=== PATIENT | female | born 1955 | race African-American/Black ===

== ENCOUNTER → 2017-01-25 | Outpatient (CLI) | payer OTHER | LOC: OD 10:42 | PROVIDERS: ATTEND Physician Assistant | DX: R05 Cough (principal) | CPT/HCPCS: 71020 ==

== ENCOUNTER → 2017-03-10 | Outpatient (CLI) | payer OTHER | LOC: RAD 09:19 | PROVIDERS: ATTEND Urology | DX: D30.02 Benign neoplasm of left kidney (principal) | CPT/HCPCS: 76770 ==

== ENCOUNTER → 2017-07-21 | Outpatient (CLI) | payer OTHER ==
--- NOTE | 2017-07-21 15:26 | WOMENS IMAGING REPORT ---
EXAM DESCRIPTION: BILAT SCREENING MAMMO W/CAD COMPLETED DATE/TIME: 07/21/2017 2:20 pm REASON FOR STUDY: ROUTINE SCREENING; Z12.31 Z12.31 ENCNTR SCREEN MAMMOGRAM FOR MALIGNANT NEOPLASM O F SARAI COMPARISON: Annual priors dating back to February 2010. TECHNIQUE: Standard craniocaudal and mediolateral oblique views of each breast recorded using digita l acquisition. LIMITATIONS: None. FINDINGS: No masses, calcifications or architectural distortion. No areas of suspicion. Read with the assistance of CAD. .[facility] - R2 Cenova Version 1.3 .[facility] Imaging - R2 Cenova Version 1.3 .[facility] - R2 Cenova Version 2.4 .[facility] [place] R2 Cenova Version 2.4 .[facility] - R2 Language Tutor Version 9.2 IMPRESSION: NORMAL MAMMOGRAM. BIRADS 1. BREAST DENSITY: a. The breasts are almost entirely fatty. BIRAD: 1 NEGATIVE RECOMMENDATION: ROUTINE SCREENING COMMENT: The patient has been notified of the results by letter per SA requirements. Additional no tification policies are in place for contacting patient with suspicious or incomplete findings. Quality ID #[id number]: The [employer] recommends an annual screening mammogram for women aged 40 years or over. This facility utilizes a reminder system to ensure that all patients receive reminder letters, and/or direct phone calls for appointments. This includes reminders for routine scr eening mammograms, diagnostic mammograms, or other Breast Imaging Interventions when appropriate. Th is patient will be placed in the appropriate reminder system. The [employer] ([employer]) has developed recommendations for screening MRI of the breast s in certain patient populations, to be used in conjunction with mammography. Breast MRI surveillanc e may be appropriate for women with more than 20% lifetime risk of developing breast cancer as deter mined by genetic testing, significant family history of the disease, or history of mantle radiation f or Hodgkins Disease. ACR Practice Guidelines 2008. TECHNICAL DOCUMENTATION: FINDING NUMBER: (1) ASSESSMENT: (1) JOB ID: [id number] [employer]- All Rights Reserved
== END ==
LOC: WI 13:58
PROVIDERS: ATTEND Physician Assistant
DX: Z12.31 Encounter for screening mammogram for malignant neoplasm of breast (principal)
CPT/HCPCS: 77067; G0202

== ENCOUNTER 2018-03-26 15:23 | Inpatient (IN) | payer OTHER ==
[2018-03-26] MEDS ORDERED: ASPIRIN 81 MG TABLET, CHEWABLE PO ONE (16:51)
--- NOTE | 2018-03-26 16:53 | ER Document Report ---
ED Medical Screen (RME) - General Chief Complaint: Chest Pain Stated Complaint: SHORTNESS OF BREATH Time Seen by Provider: 03/26/18 16:48 Notes: Patient has had chest pain since while at work. Since then the pain comes and goes, located under her left breast. She has had some acid reflux mixed in with this pain. Been nauseated but not vomiting. Some shortness of breath. Went to a local urgent care who sent her here for further evaluation. Patient has a history of DVTs. No history of heart disease. Insulin-dependent diabetic. Hypertension. Cholesterol. Patient is an ex-smoker, stopped 5 years ago. Patient is on Plavix and aspirin. TRAVEL OUTSIDE OF THE [place] IN LAST 30 DAYS: No - Related Data Allergies/Adverse Reactions: diphenhydramine HCl [From Benadryl] Allergy (Unknown, Verified 11/12/12 23:31) Facial swelling Lactase [From Dairy Ease] Adverse Reaction (Intermediate, Verified 11/09/12 19: 35) VOMITING latex Allergy (Mild, Uncoded 11/09/12 21:32) Generalized Itching Past Medical History - Past Medical History Cardiac Medical History: Reports: Hx Hypercholesterolemia, Hx Hypertension Denies: Hx Atrial Fibrillation, Hx Congestive Heart Failure, Hx Coronary Artery Disease, Hx Heart Attack, Hx Peripheral Vascular Disease, Hx Pulmonary Embolism, Hx Heart Murmur Pulmonary Medical History: Reports: Hx Asthma, Hx Bronchitis Denies: Hx COPD, Hx Pneumonia, Hx Respiratory Failure, Hx Sleep Apnea, Hx Tuberculosis Endocrine Medical History: Reports: Hx Diabetes Mellitus Type 1. Denies: Hx Graves' Disease, Hx Hyperthyroidism, Hx Hypothyroidism Renal/ Medical History: Denies: Hx Peritoneal Dialysis Malignancy Medical History: Denies: Hx Leukemia, Hx Lung Cancer GI Medical History: Reports: Hx Gastroesophageal Reflux Disease. Denies: Hx Crohn's Disease, Hx Hiatal Hernia, Hx Irritable Bowel, Hx Liver Failure, Hx Pancreatitis, Hx Ulcer Musculoskeltal Medical History: Reports Hx Arthritis, Denies Hx Fibromyalgia, Denies Hx Muscular Dystrophy, Reports Hx Muscle Spasm Traumatic Medical History: Denies: Hx Fractures Infectious Medical History: Denies: Hx HIV Past Surgical History: Reports: Hx Section - 1988, Hx Cholecystectomy, Hx Hysterectomy, Hx Tubal Ligation. Denies: Hx Appendectomy, Hx Bowel Surgery, Hx Colostomy, Hx Coronary Artery Bypass Graft, Hx Gastric Bypass Surgery, Hx Herniorrhaphy, Hx Mastectomy, Hx Pacemaker, Hx Tonsillectomy - Immunizations Hx Diphtheria, Pertussis, Tetanus Vaccination: Yes Physical Exam - Vital signs Vitals: Temp Pulse Resp BP Pulse Ox 97.8 F 86 16 151/93 H 97 03/26/18 16:04 03/26/18 16:04 03/26/18 16:04 03/26/18 16:04 03/26/18 16:04 Course - Vital Signs Vital signs: Temp Pulse Resp BP Pulse Ox 97.8 F 86 16 151/93 H 97 03/26/18 16:04 03/26/18 16:04 03/26/18 16:04 03/26/18 16:04 03/26/18 16:04
[2018-03-26 17:25] LABS: ABSOLUTE BASOPHILS # (AUTO) 0.1 10^3/uL (0.0-0.2); ABSOLUTE EOSINOPHILS # (AUTO) 0.1 10^3/uL (0.0-0.6); ABSOLUTE LYMPHOCYTES (AUTO) 1.9 10^3/uL (0.5-4.7); ABSOLUTE MONOCYTES (AUTO) 0.4 10^3/uL (0.1-1.4); BASOPHILS % (AUTO) 1.3 % (0-2); HEMATOCRIT 38.6 % (36.0-47.0); HEMOGLOBIN 12.7 g/dL (12.0-15.5); LYMPHOCYTES % (AUTO) 25.5 % (13-45); MEAN CORPUSCULAR HEMOGLOBIN 29.1 pg (27.0-33.4); MEAN CORPUSCULAR HGB CONC 32.8 g/dL (32.0-36.0); MEAN CORPUSCULAR VOLUME 89 fl (80-97); MONOCYTES % (AUTO) 4.8 % (3-13); PLATELET COUNT 335 10^3/uL (150-450); RED BLOOD COUNT 4.35 10^6/uL (3.72-5.28); RED CELL DISTRIBUTION WIDTH 14.2 % (11.5-14.0); SEGMENTED NEUTROPHILS % (AUTO) 66.4 % (42-78); TOTAL CELLS COUNTED % (AUTO) 100 %; WHITE BLOOD COUNT 7.5 10^3/uL (4.0-10.5)
--- NOTE | 2018-03-26 17:41 | EKG REPORT ---
SEVERITY:- BORDERLINE ECG - SINUS RHYTHM PROBABLE LEFT ATRIAL ABNORMALITY BORDERLINE T WAVE ABNORMALITIES : Confirmed by: Simone Monroy MD 26-Mar-2018 17:39:53
--- NOTE | 2018-03-26 17:51 | RADIOLOGY REPORT (SQ) ---
EXAM DESCRIPTION: CHEST SINGLE VIEW COMPLETED DATE/TIME: 03/26/2018 5:40 pm REASON FOR STUDY: Chest pain under left breast for 4 days COMPARISON: 01/25/2017 EXAM PARAMETERS: NUMBER OF VIEWS: One view. TECHNIQUE: Single frontal radiographic view of the chest acquired. RADIATION DOSE: NA LIMITATIONS: None. FINDINGS: LUNGS AND PLEURA: No opacities, masses or pneumothorax. No pleural effusion. MEDIASTINUM AND HILAR STRUCTURES: No masses. Contour normal. HEART AND VASCULAR STRUCTURES: Stable heart size. BONES: No acute findings. HARDWARE: None in the chest. OTHER: No other significant finding. IMPRESSION: NO ACUTE RADIOGRAPHIC FINDING IN THE CHEST. TECHNICAL DOCUMENTATION: JOB ID: [id number] [employer]- All Rights Reserved Reading location - IP/workstation name: [email or web address]
--- NOTE | 2018-03-26 17:53 | ER Document Report ---
ED Cardiac - General Chief Complaint: Chest Pain Stated Complaint: SHORTNESS OF BREATH Time Seen by Provider: 03/26/18 16:48 Information source: Patient Notes: Patient is a 62-year-old female with past medical history of diabetes, high blood pressure, and high cholesterol who presents today with the onset 2 days ago of some intermittent left nonradiating chest "pressure". She denies to me any shortness of breath. She denies exertional symptoms. She denies nausea, vomiting, or fevers. She states that there are no aggravating or relieving factors and it is not exertional. She states that the onset of the symptomatology 2 days ago she had some mild epigastric discomfort. She states she has not had this discomfort since that time. Patient states that the episodes are transient. She denies any calf pain, leg swelling, or recent trips or travel. TRAVEL OUTSIDE OF THE [place] IN LAST 30 DAYS: No - HPI Patient complains to provider of: Chest pain Was the onset of pain: Gradual Chest pain location: Under breast Quality of pain: Other - See above Chest pain radiation location: None Severity now: Mild Severity at worst: Mild Pain level currently: Denies Cardiac risk factors: Diabetes, Hypertension, Dyslipidemia Positive cardiac history: No Associated symptoms: Other - See above Exacerbated by: Denies Relieved by: Nothing Similar symptoms previously: No Recently seen / treated by doctor: No - Related Data Allergies/Adverse Reactions: diphenhydramine HCl [From Benadryl] Allergy (Unknown, Verified 11/12/12 23:31) Facial swelling Lactase [From Dairy Ease] Adverse Reaction (Intermediate, Verified 11/09/12 19: 35) VOMITING latex Allergy (Mild, Uncoded 11/09/12 21:32) Generalized Itching Past Medical History - General Information source: Patient - Social History Smoking Status: Former Smoker Cigarette use (# per day): No Chew tobacco use (# tins/day): No Smoking Education Provided: No Frequency of alcohol use: None Family History: Reviewed & Not Pertinent Patient has suicidal ideation: No Patient has homicidal ideation: No - Past Medical History Cardiac Medical History: Reports: Hx Hypercholesterolemia, Hx Hypertension Denies: Hx Atrial Fibrillation, Hx Congestive Heart Failure, Hx Coronary Artery Disease, Hx Heart Attack, Hx Peripheral Vascular Disease, Hx Pulmonary Embolism, Hx Heart Murmur Pulmonary Medical History: Reports: Hx Asthma, Hx Bronchitis Denies: Hx COPD, Hx Pneumonia, Hx Respiratory Failure, Hx Sleep Apnea, Hx Tuberculosis Endocrine Medical History: Reports: Hx Diabetes Mellitus Type 1. Denies: Hx Graves' Disease, Hx Hyperthyroidism, Hx Hypothyroidism Renal/ Medical History: Denies: Hx Peritoneal Dialysis Malignancy Medical History: Denies: Hx Leukemia, Hx Lung Cancer GI Medical History: Reports: Hx Gastroesophageal Reflux Disease. Denies: Hx Crohn's Disease, Hx Hiatal Hernia, Hx Irritable Bowel, Hx Liver Failure, Hx Pancreatitis, Hx Ulcer Musculoskeltal Medical History: Reports Hx Arthritis, Denies Hx Fibromyalgia, Denies Hx Muscular Dystrophy, Reports Hx Muscle Spasm Traumatic Medical History: Denies: Hx Fractures Infectious Medical History: Denies: Hx HIV Past Surgical History: Reports: Hx Section - 1988, Hx Cholecystectomy, Hx Hysterectomy, Hx Tubal Ligation. Denies: Hx Appendectomy, Hx Bowel Surgery, Hx Colostomy, Hx Coronary Artery Bypass Graft, Hx Gastric Bypass Surgery, Hx Herniorrhaphy, Hx Mastectomy, Hx Pacemaker, Hx Tonsillectomy - Immunizations Hx Diphtheria, Pertussis, Tetanus Vaccination: Yes Review of Systems - Review of Systems Constitutional: denies: Fever EENT: denies: Eye discharge, Nose discharge Cardiovascular: Chest pain. denies: Palpitations Respiratory: denies: Short of breath Gastrointestinal: denies: Vomiting Musculoskeletal: denies: Leg swelling Skin: Other - no hives. denies: Rash Neurological/Psychological: Other - no slurred speech -: Yes All other systems reviewed and negative Physical Exam - Vital signs Vitals: Temp Pulse Resp BP Pulse Ox 97.8 F 86 16 151/93 H 97 03/26/18 16:04 03/26/18 16:04 03/26/18 16:04 03/26/18 16:04 03/26/18 16:04 Interpretation: Normal Notes: Reviewed vital signs and nursing note as charted by RN. CONSTITUTIONAL: Alert and oriented and responds appropriately to questions. Well -appearing; well-nourished NECK: Supple without meningismus; non-tender; no cervical lymphadenopathy, no masses CARD: Regular rate and rhythm; no murmurs, no clicks, no rubs, no gallops; symmetric distal pulses RESP: Normal chest excursion without splinting or tachypnea; breath sounds clear and equal bilaterally ABD/GI: Normal bowel sounds; non-distended; soft, non-tender to deep palpation of all 4 quadrants of the abdomen at this time BACK: The back appears normal and is non-tender to palpation, there is no CVA tenderness EXT: Normal ROM in all joints; non-tender to palpation; no cyanosis, no effusions, no edema SKIN: Normal color for age and race; warm; dry; good turgor; capillary refill < 2 seconds; no acute lesions noted NEURO: Moves all extremities equally; Motor and sensory function intact PSYCH: The patient's mood and manner are appropriate. Grooming and personal hygiene are appropriate. Course - Re-evaluation Re-evalutation: 03/26/18 17:51 Given the above history, physical, vital signs, heart rate of 84, oxygen saturation on room air is recorded, no calf pain or leg swelling, with no radiation to the back, currently pain-free, I do believe aortic dissection and pulmonary embolism to be unlikely. 03/26/18 18:48 Labs as recorded. X-ray of the chest shows no acute abnormality. Given the patient's age and comorbidities, I have called Dr. Phan given that this is Dr. Richardson's patient. We have placed the patient on telemetry for admission. - Vital Signs Vital signs: Temp Pulse Resp BP Pulse Ox 97.8 F 86 16 151/93 H 97 03/26/18 16:04 03/26/18 16:04 03/26/18 16:04 03/26/18 16:04 03/26/18 16:04 - Laboratory Result Diagrams: 03/26/18 17:00 03/26/18 17:51 Laboratory results interpreted by me: 03/26/18 03/26/18 17:00 17:51 RDW 14.2 H Sodium 147.0 H Glucose 153 H Discharge - Discharge Clinical Impression: Chest pain Qualifiers: Chest pain type: unspecified Qualified Code(s): R07.9 - Chest pain, unspecified Condition: Fair Disposition: ADMITTED OBSERVATION Admitting Provider: Dylan Unit Admitted: Telemetry Referrals: ROMAIN SCHMITT PA [Primary Care Provider] - Follow up as needed
[2018-03-26 18:18] LABS: ALANINE AMINOTRANSFERASE 37 U/L (9-52); ALBUMIN 4.3 g/dL (3.5-5.0); ALKALINE PHOSPHATASE 112 U/L (38-126); ANION GAP 15 (5-19); ASPARTATE AMINO TRANSFERASE 30 U/L (14-36); BILIRUBIN,DIRECT 0.3 mg/dL (0.0-0.4); BILIRUBIN,TOTAL 0.3 mg/dL (0.2-1.3); BLOOD UREA NITROGEN 13 mg/dL (7-20); CALCIUM 9.7 mg/dL (8.4-10.2); CARBON DIOXIDE 25 mmol/L (22-30); CHLORIDE 107 mmol/L (98-107); CREATINE KINASE 57 U/L (30-135); GLUCOSE 153 mg/dL (75-110); LIPASE 111.7 U/L (23-300); POTASSIUM 4.2 mmol/L (3.6-5.0); TOTAL PROTEIN 7.1 g/dL (6.3-8.2)
[2018-03-26 18:30] LABS: CREATINE KINASE MB 0.46 ng/mL (<4.55)
[2018-03-26 18:31] LABS: TROPONIN I < 0.012 ng/mL
[2018-03-26] MEDS ORDERED: LIDOCAINE 2% VISCOUS SOLN 20 ML UDCUP PO ONE (18:46)
[2018-03-26] MEDS ORDERED: METOCLOPRAMIDE HCL ORAL SOLN 10 MG/10 ML UDCUP PO ONE (18:46)
[2018-03-26] MEDS ORDERED: MAG HYDROX/AL HYDROX/SIMETH SUSP 30 ML UDCUP PO ONE (18:46)
[2018-03-26] MEDS ORDERED: ALBUTEROL SULFATE 0.083% NEB 2.5 MG/3 ML AMPUL NEB PRN (20:58)
[2018-03-26] MEDS ORDERED: GLUCAGON,HUMAN RECOMB 1 MG INJ IM PRN (21:00)
[2018-03-26] MEDS ORDERED: ASPIRIN 81 MG TABLET, ENT COATED PO SCH (21:00)
[2018-03-26] MEDS ORDERED: DEXTROSE 40% GEL 15 GM TUBE PO PRN ×2 (21:00)
[2018-03-26] MEDS ORDERED: DEXTROSE 50%-WATER 25 GM/50 ML DISP.SYRIN IV PRN ×2 (21:00)
[2018-03-26] MEDS ORDERED: INSULIN LISPRO 100 UNIT/ML 3 ML VIAL SUBCUT ONE (21:15)
[2018-03-26] MEDS ORDERED: LANSOPRAZOLE 30 MG TAB.RAP.DR PO ONE (21:15)
[2018-03-26] MEDS ORDERED: METFORMIN HCL 500 MG TABLET PO ONE (22:00)
[2018-03-26] MEDS ORDERED: SIMVASTATIN 40 MG TABLET PO SCH (22:00)
[2018-03-26] MEDS ORDERED: ASPIRIN 81 MG TABLET, ENT COATED PO ONE (22:00)
[2018-03-26] MEDS ORDERED: INSULIN GLARGINE,HUM.REC.ANLOG 300 UNIT/3 ML INSULN.PEN SUBCUT ONE (22:15)
[2018-03-26] MEDS ORDERED: AMLODIPINE BESYLATE 5 MG TABLET PO ONE (22:30)
[2018-03-26] MEDS: INSULIN GLARGINE,HUM.REC.ANLOG 300 UNIT/3 ML INSULN.PEN SUBCUT SCH (22:32)
[2018-03-27 06:12] LABS: CREATINE KINASE MB 0.43 ng/mL (<4.55)
[2018-03-27 06:16] LABS: TROPONIN I < 0.012 ng/mL
[2018-03-27] MEDS: METFORMIN HCL 500 MG TABLET PO SCH ×2 (07:47→17:07)
[2018-03-27] MEDS: INSULIN LISPRO 100 UNIT/ML 3 ML VIAL SUBCUT SCH ×3 (10:56→17:07)
[2018-03-27] MEDS: LANSOPRAZOLE 30 MG TAB.RAP.DR PO SCH (10:57)
[2018-03-27] MEDS: AMLODIPINE BESYLATE 5 MG TABLET PO SCH ×2 (10:57→21:33)
[2018-03-27] MEDS: ASPIRIN 81 MG TABLET, ENT COATED PO SCH (10:57)
[2018-03-27] MEDS ORDERED: ATORVASTATIN CALCIUM 80 MG TABLET PO ONE (11:01)
--- NOTE | 2018-03-27 11:01 | PDOC H&P ---
History of Present Illness Admission Date/PCP: 03/26/18 19:00 TOYIN VAZQUEZ History of Present Illness: KATHYA MIN is a 62 year old female, she has history of type 2 diabetes mellitus, peripheral vascular disease she came to the emergency room last night for evaluation of 3 day history of chest pain, the chest pain is left-sided provoked by stress, she said she is under a lot of stress on the job. She has risk factors for vascular disease, she also have established vascular disease, PAD of the right leg with stenting. She was admitted for observation and management of her symptoms, 3 sets of cardiac enzymes are negative but she is advised to obtain a Cardiolite Lexiscan stress test before discharge Past Medical History Cardiac Medical History: Reports: Hyperlipidema, Hypertension Pulmonary Medical History: Reports: Asthma, Bronchitis Endocrine Medical History: Reports: Diabetes Mellitus Type 2 GI Medical History: Reports: Gastroesophageal Reflux Disease Musculoskeltal Medical History: Reports: Arthritis Hematology: Reports: Anemia Past Surgical History Past Surgical History: Reports: Section - 1988, Cholecystectomy, Hysterectomy, Tubal Ligation Social History Smoking Status: Former Smoker Number of Years Smokin Last Time Smoked: 11/09/12 Frequency of Alcohol Use: Rare Hx Recreational Drug Use: No Hx Prescription Drug Abuse: No Family History Family History: Reviewed & Not Pertinent Parental Family History Reviewed: Yes Children Family History Reviewed: Yes Sibling(s) Family History Reviewed.: Yes Medication/Allergy Home Medications: Albuterol Sulfate [Albuterol Sulfate 2.5mg/3 mL] 2.5 mg IH Q6H PRN 11/09/12 Amlodipine Besylate [Norvasc 5 mg Tablet] 5 mg PO Q12H 11/09/12 Aspirin [Ecotrin 81 mg EC Tablet] 81 mg PO DAILY 11/09/12 Esomeprazole Mag Trihydrate [Nexium] 40 mg PO DAILY 11/09/12 Simvastatin [Zocor 40 mg Tablet] 40 mg PO QHS 11/09/12 Telmisartan/Hydrochlorothiazid [Micardis HCT 40-12.5 mg Tablet] 1 each PO DAILY 11/09/12 Insulin Glargine,Hum.rec.anlog [Lantus Insulin 100 Unit/mL] 20 unit SUBCUT QHS # 0 insuln.pen 11/14/12 Metformin HCl [Glucophage 500 mg Tablet] 1,000 mg PO BIDBS #0 tablet 11/14/12 Insulin Lispro [Humalog Insulin (Lispro) 100 unit/mL] 12 unit SUBCUT TID Allergies/Adverse Reactions: diphenhydramine HCl [From Benadryl] Allergy (Unknown, Verified 11/12/12 23:31) Facial swelling Lactase [From Dairy Ease] Adverse Reaction (Intermediate, Verified 11/09/12 19: 35) VOMITING latex Allergy (Mild, Uncoded 11/09/12 21:32) Generalized Itching Review of Systems Constitutional: ABSENT: chills, fever(s), headache(s), weight gain, weight loss Eyes: ABSENT: visual disturbances Ears: ABSENT: hearing changes Cardiovascular: PRESENT: chest pain. ABSENT: dyspnea on exertion, edema, orthropnea, palpitations Respiratory: ABSENT: cough, hemoptysis Gastrointestinal: ABSENT: abdominal pain, constipation, diarrhea, hematemesis, hematochezia, nausea, vomiting Genitourinary: ABSENT: dysuria, hematuria Musculoskeletal: ABSENT: joint swelling Integumentary: ABSENT: rash, wounds Neurological: ABSENT: abnormal gait, abnormal speech, confusion, dizziness, focal weakness, syncope Psychiatric: ABSENT: anxiety, depression, homidical ideation, suicidal ideation Endocrine: ABSENT: cold intolerance, heat intolerance, menstrual abnormalities, polydipsia, polyuria Hematologic/Lymphatic: ABSENT: easy bleeding, easy bruising, lymphadenopathy Physical Exam Vital Signs: Temp Pulse Resp BP Pulse Ox 97.7 F 88 16 168/93 H 100 03/27/18 08:00 03/27/18 08:25 03/27/18 08:25 03/27/18 08:00 03/27/18 08:25 Intake & Output 03/26/18 03/27/18 03/28/18 06:59 06:59 06:59 Intake Total 737 Output Total 1300 Balance -563 Weight 82.6 kg General appearance: PRESENT: no acute distress, well-developed, well-nourished Head exam: PRESENT: atraumatic, normocephalic Eye exam: PRESENT: conjunctiva pink, EOMI, PERRLA Ear exam: PRESENT: normal external ear exam Mouth exam: PRESENT: moist, tongue midline Neck exam: PRESENT: full ROM Respiratory exam: PRESENT: clear to auscultation selvin Cardiovascular exam: PRESENT: RRR, +S1, +S2 Pulses: PRESENT: normal dorsalis pedis pul, +2 pedal pulses bilateral Vascular exam: PRESENT: normal capillary refill GI/Abdominal exam: PRESENT: soft Rectal exam: PRESENT: deferred Neurological exam: PRESENT: alert, awake, oriented to person, oriented to place , oriented to time, oriented to situation, CN II-XII grossly intact Psychiatric exam: PRESENT: appropriate affect, normal mood Skin exam: PRESENT: dry, intact, warm Results Laboratory Results: 03/26/18 03/26/18 03/26/18 20:57 20:57 20:57 Creatine Kinase 51 CK-MB (CK-2) Cancelled Troponin I Cancelled < 0.012 03/27/18 03/27/18 05:15 05:15 Creatine Kinase 48 CK-MB (CK-2) 0.43 Troponin I < 0.012 Impressions: Chest X-Ray 03/26/18 16:51 IMPRESSION: NO ACUTE RADIOGRAPHIC FINDING IN THE CHEST. Assessment & Plan - Diagnosis (1) Chest pain Qualifiers: Chest pain type: unspecified Qualified Code(s): R07.9 - Chest pain, unspecified Is this a current diagnosis for this admission?: Yes Plan: She is admitted for evaluation of chest pain, 3 sets of cardiac enzymes negative for acute myocardial infarction, she will be scheduled for a nuclear Cardiolite Lexiscan stress test
--- NOTE | 2018-03-27 13:45 | PDOC CONSULTATION ---
Consultation Consult Date: 03/27/18 Attending physician:: SHIRIN DIETRICH Consult reason:: Chest pain History of Present Illness Admission Date/PCP: 03/26/18 19:00 TOYIN VAZQUEZ Patient complains of: Chest pain History of Present Illness: KATHYA MIN is a 62 year old female she has history of type 2 diabetes mellitus, peripheral vascular disease she came to the emergency room last night for evaluation of 3 day history of chest pain, the chest pain is left-sided provoked by stress, she said she is under a lot of stress on the job. She has risk factors for vascular disease, she also have established vascular disease, PAD of the right leg with stenting. She was admitted for observation and management of her symptoms, 3 sets of cardiac enzymes are negative but she is advised to obtain a Cardiolite Lexiscan stress test before discharge. This history obtained by the new car make ready mechanic was reviewed and confirmed. Patient has not had any recurrence of chest pain since she has been in the hospital. So far her cardiac enzymes Patient describes history of peripheral vascular disease with stent placement in her lower extremity. She claims to have had a heart catheterization about 7- 8 years ago which she claims was negative for any significant disease. Past Medical History Cardiac Medical History: Reports: Hyperlipidema, Hypertension Denies: Atrial Fibrillation, Congestive Heart Failure, Coronary Artery Disease, Myocardial Infarction, Peripheral Vascular Disease, Pulmonary Embolism , Heart Murmur Pulmonary Medical History: Reports: Asthma, Bronchitis Denies: Chronic Obstructive Pulmonary Disease (COPD), Pneumonia, Respiratory Failure, Sleep Apnea, Tuberculosis Endocrine Medical History: Reports: Diabetes Mellitus Type 1, Diabetes Mellitus Type 2 Denies: Hyperthyroidism, Hypothyroidism Malignancy Medical History: Denies: Leukemia, Lung Cancer GI Medical History: Reports: Gastroesophageal Reflux Disease Denies: Crohn's Disease, Hiatal Hernia Musculoskeltal Medical History: Reports: Arthritis Denies: Fibromyalgia Psychiatric Medical History: Denies: Depression Hematology: Reports: Anemia Infectious Medical History: Denies: HIV Past Surgical History Past Surgical History: Reports: Section - 1988, Cholecystectomy, Hysterectomy, Tubal Ligation Denies: Appendectomy, Colostomy, Coronary Artery Bypass Graft, Gastric Bypass Surgery, Herniorrhaphy, Mastectomy, Pacemaker, Tonsillectomy Social History Information Source: Patient Smoking Status: Former Smoker Number of Years Smokin Last Time Smoked: 11/09/12 Frequency of Alcohol Use: Rare Hx Recreational Drug Use: No Hx Prescription Drug Abuse: No - Advance Directive Resuscitation Status: Full Code Surrogate healthcare decision maker:: Patient's daughter is the surrogate decision-maker Family History Family History: Reviewed & Not Pertinent Parental Family History Reviewed: Yes Children Family History Reviewed: Yes Sibling(s) Family History Reviewed.: Yes Medication/Allergy Home Medications: Amlodipine Besylate [Norvasc 5 mg Tablet] 5 mg PO Q12H 11/09/12 Aspirin [Ecotrin 81 mg EC Tablet] 81 mg PO DAILY 11/09/12 Telmisartan/Hydrochlorothiazid [Micardis HCT 40-12.5 mg Tablet] 1 each PO DAILY 11/09/12 Metformin HCl [Glucophage 500 mg Tablet] 1,000 mg PO BIDBS #0 tablet 11/14/12 Cetirizine HCl [Zyrtec 10 mg Tablet] 10 mg PO DAILY 03/27/18 Cholecalciferol (Vitamin D3) [Vitamin D3 1000 Unit Tablet] 1,000 unit PO DAILY 03/27/18 Clopidogrel Bisulfate [Plavix 75 mg Tablet] 75 mg PO DAILY 03/27/18 Dulaglutide [Trulicity] 0.75 mg SQ MO@1000 03/27/18 Fluticasone/Salmeterol [Advair 250-50 Diskus 14 Dose/Diskus] 1 inh IH Q12 Pantoprazole Sodium [Protonix] 40 mg PO DAILY 03/27/18 Simvastatin 10 mg PO QHS 03/27/18 Tizanidine HCl [Zanaflex 4 Mg Tablet] 4 mg PO Q6HP PRN 03/27/18 Allergies/Adverse Reactions: diphenhydramine HCl [From Benadryl] Allergy (Unknown, Verified 11/12/12 23:31) Facial swelling Lactase [From Dairy Ease] Adverse Reaction (Intermediate, Verified 11/09/12 19: 35) VOMITING latex Allergy (Mild, Uncoded 11/09/12 21:32) Generalized Itching Review of Systems Review of Systems: Please see history of present illness and past medical history as wall. Constitutional: No fever or chills reported. Head : No recent chronic headaches, recent head injury. Eyes: No recent eye pain, diplopia, redness, discharge, acute visual changes. Ears: No recent chronic ear pain, acute hearing loss, ear discharge. Oral cavity: No recent ulcerations, bleeding, oral cavity discomfort. Neck: No recent acute neck pain reported. Hematologic: No recent easy bruising or bleeding. Lymphatic: No recent lymph node enlargement reported. Cardiovascular system review: See history of present illness. Respiratory system review: No hemoptysis or blood clots in the lungs reported. Mild Shortness of breath on exertion Gastrointestinal system review: Negative for any recent acute hematemesis, melena. Genitourinary system review: No recent acute or chronic hematuria, flank pain, UTI etc. reported. Skin system review: Negative for any recent abnormal bruising, no rash, no pruritus reported. Neurologic: No prior history of strokes, mini strokes, seizure disorder. Psychologic: No history of major psychosis or major depression reported. Musculoskeletal: Minor aches and pains reported. No acute joint swelling reported. Endocrine: No recent polyuria, polydipsia, recent heat or cold intolerance. Physical Exam Vital Signs: Temp Pulse Resp BP Pulse Ox 97.7 F 70 12 149/89 H 99 03/27/18 12:00 03/27/18 12:00 03/27/18 12:00 03/27/18 12:00 03/27/18 12:00 Intake & Output 03/26/18 03/27/18 03/28/18 06:59 06:59 06:59 Intake Total 737 Output Total 1300 Balance -563 Weight 82.6 kg Exam: GENERAL: well-nourished and in no acute distress. Alert and oriented x3 HEAD: Atraumatic, normocephalic. EYES: Pupils equal round and reactive to light, extraocular movements intact, sclera anicteric, conjunctiva are normal. ENT: TMs normal, nares patent, oropharynx clear without exudates. Moist mucous membranes. No oral ulcerations or bleeding gums noted NECK: supple without lymphadenopathy. Trachea is central. No cervical or axillary lymphadenopathy noted. Carotids are 2+, JVD WNL LUNGS: Respiration seems nonlabored, no significant accessory muscle action noted. Breath sounds clear to auscultation bilaterally and equal noted. No wheezes rales or rhonchi noted. No significant dullness noted on percussion. CHEST: Palpation of the chest wall shows no significant chest wall tenderness. HEART: [employer]LE[employer] TE[employer]ER, No PSH, 1/6 BAM aortic area, 1/6 zamora systolic murmur mitral area, no rubs, no gallops. ABDOMEN: Soft, no significant tenderness appreciated, normoactive bowel sounds. No guarding, no rebound. No rigidity noted . No masses appreciated. EXTREMITIES: Pedal pulses are 1-2+, no calf tenderness noted. No clubbing or cyanosis. negative pedal edema noted NEUROLOGICAL: Focused neurological exam showed no significant neurologic deficit. Normal speech, no focal weakness appreciated. PSYCH: Normal mood, normal affect. Judgment and insight within normal limits. SKIN: No significant ecchymosis, skin is noted to be warm. MUSCULOSKELETAL EXAM: No significant acute joint swelling noted. Results Laboratory Results: 03/26/18 03/26/18 03/26/18 20:57 20:57 20:57 Creatine Kinase 51 CK-MB (CK-2) Cancelled Troponin I Cancelled < 0.012 03/27/18 03/27/18 05:15 05:15 Creatine Kinase 48 CK-MB (CK-2) 0.43 Troponin I < 0.012 EKG Comments: EKG is WNL. Shows sinus rhythm, no acute ST-T wave changes are noted. Impressions: Chest X-Ray 03/26/18 16:51 IMPRESSION: NO ACUTE RADIOGRAPHIC FINDING IN THE CHEST. Assessment & Plan - Diagnosis (1) Chest pain Qualifiers: Chest pain type: unspecified Qualified Code(s): R07.9 - Chest pain, unspecified Is this a current diagnosis for this admission?: Yes (2) Hypertension Qualifiers: Hypertension type: essential hypertension Qualified Code(s): I10 - Essential (primary) hypertension Is this a current diagnosis for this admission?: Yes (3) Peripheral vascular disease Is this a current diagnosis for this admission?: Yes (4) Hyperlipidemia Qualifiers: Hyperlipidemia type: unspecified Qualified Code(s): E78.5 - Hyperlipidemia , unspecified Is this a current diagnosis for this admission?: Yes (5) Diabetes Qualifiers: Diabetes mellitus type: type 2 Diabetes mellitus jail insulin use: unspecified jail insulin use status Diabetes mellitus complication status : with unspecified complications Qualified Code(s): E11.8 - Type 2 diabetes mellitus with unspecified complications Is this a current diagnosis for this admission?: Yes - Notes Notes: Chest pain: Patient has some typical and atypical features of chest pain. Cardiac enzymes so far has been negative. Electrocardiogram WNL. Multiple differential diagnoses exist in this patient. In descending order of probability this includes underlying coronary artery disease, gastroesophageal reflux, musculoskeletal pain, referred pain from elsewhere, anxiety panic disorder etc.Patient has significant cardiac risk factors, which indicates that there is a intermediate probability of chest discomfort coming from underlying CAD. Patient has been relatively stable. Feel that if patient does well on ambulation and is noted to have normal EKG in a.m., she could have a nuclear stress test performed as an outpatient. If patient has recurrent chest pain, consider inpatient stress test or sending her out for heart catheterization. Please note that I am not available tomorrow. Hypertension: Reasonably well controlled. Blood pressure goal in this patient is 135/85 or less. This was discussed with the patient. Currently blood pressure under reasonable control. Better medication for this patient are MARISOL inhibitor/ARB/beta gilberto etc. discussed side effects of uncontrolled hypertension and also severe hypotension. Diabetes: Recommend good control of blood sugar. However should avoid any hypoglycemia and hyperglycemia. Patient being expertly managed by primary care M.D/hospitalist. PVD: No acute limb ischemia noted. Based on previous evaluation, patient has significant PVD. Further evaluation can be performed as an outpatient. Rest ischemia symptoms discussed. Patient to report immediately if such symptoms occur. Hyperlipidemia: LDL goal is less than 70. Recommend statin therapy at least intermediate or high dose, of high potency status. Periodic lipid panel and liver panel is indicated. Patient to report any significant muscle discomfort or other side effects. - Time Time Spent: 30 to 50 Minutes - CODE STATUS was discussed, patient remains full code. Surrogate decision-maker unchanged. Multiple medical problems were addressed. More than 50% of the time spent coordinating care, discussing management plans with involved caregivers. Management plans discussed with involved personnels. Medical decision making was of moderate to high complexity , patient's has multiple comorbidities. Medications reviewed and adjusted accordingly: Yes
[2018-03-27 14:27] LABS: CREATINE KINASE MB 0.54 ng/mL (<4.55)
[2018-03-27 14:31] LABS: TROPONIN I < 0.012 ng/mL
[2018-03-27] MEDS: ATORVASTATIN CALCIUM 80 MG TABLET PO SCH (21:34)
[2018-03-27] MEDS: INSULIN GLARGINE,HUM.REC.ANLOG 300 UNIT/3 ML INSULN.PEN SUBCUT SCH (21:34)
--- NOTE | 2018-03-28 06:56 | EKG REPORT ---
SEVERITY:- NORMAL ECG - SINUS RHYTHM : Confirmed by: Tin Hercules 28-Mar-2018 06:55:40
[2018-03-28] MEDS: LANSOPRAZOLE 30 MG TAB.RAP.DR PO SCH (08:50)
[2018-03-28] MEDS: ASPIRIN 81 MG TABLET, ENT COATED PO SCH (08:51)
[2018-03-28] MEDS: METFORMIN HCL 500 MG TABLET PO SCH ×2 (08:51→16:39)
[2018-03-28] MEDS: AMLODIPINE BESYLATE 5 MG TABLET PO SCH ×2 (08:51→22:36)
[2018-03-28] MEDS: INSULIN LISPRO 100 UNIT/ML 3 ML VIAL SUBCUT SCH ×3 (08:51→16:40)
--- NOTE | 2018-03-28 14:03 | PDOC PROGRESS REPORT ---
Subjective Progress Note for:: 03/28/18 Subjective:: Patient was admitted for the chest pain and currently doing fair Patient have a on and off some pain but not as she came Patient initial plan was for discharge but the patient on multiple risk factors decided to do the stress test tomorrow Reason For Visit: CHEST PAIN Physical Exam Vital Signs: Temp Pulse Resp BP Pulse Ox 98.2 F 89 16 139/92 H 100 03/28/18 11:24 03/28/18 13:49 03/28/18 11:24 03/28/18 11:24 03/28/18 11:24 Intake & Output 03/27/18 03/28/18 03/29/18 06:59 06:59 06:59 Intake Total 737 1644 Output Total 1300 2650 Balance -563 -1006 Weight 82.6 kg 82.3 kg General appearance: PRESENT: no acute distress, well-developed, well-nourished Head exam: PRESENT: atraumatic, normocephalic Eye exam: PRESENT: conjunctiva pink, EOMI, PERRLA. ABSENT: scleral icterus Ear exam: PRESENT: normal external ear exam Mouth exam: PRESENT: moist, tongue midline Neck exam: PRESENT: full ROM. ABSENT: carotid bruit, JVD, lymphadenopathy, thyromegaly Respiratory exam: PRESENT: clear to auscultation selvin Cardiovascular exam: PRESENT: RRR. ABSENT: diastolic murmur, rubs, systolic murmur Pulses: PRESENT: normal dorsalis pedis pul, +2 pedal pulses bilateral Vascular exam: PRESENT: normal capillary refill GI/Abdominal exam: PRESENT: normal bowel sounds, soft. ABSENT: distended, guarding, mass, organolmegaly, rebound, tenderness Rectal exam: PRESENT: deferred Musculoskeletal exam: PRESENT: ambulatory Neurological exam: PRESENT: alert, awake, oriented to person, oriented to place , oriented to time, oriented to situation, CN II-XII grossly intact. ABSENT: motor sensory deficit Psychiatric exam: PRESENT: appropriate affect, normal mood. ABSENT: homicidal ideation, suicidal ideation Skin exam: PRESENT: dry, intact, warm. ABSENT: cyanosis, rash Results Laboratory Results: 03/26/18 03/26/18 03/26/18 20:57 20:57 20:57 Creatine Kinase 51 CK-MB (CK-2) Cancelled Troponin I Cancelled < 0.012 03/27/18 03/27/18 03/27/18 05:15 05:15 13:45 Creatine Kinase 48 55 CK-MB (CK-2) 0.43 Troponin I < 0.012 03/27/18 13:45 Creatine Kinase CK-MB (CK-2) 0.54 Troponin I < 0.012 Impressions: Chest X-Ray 03/26/18 16:51 IMPRESSION: NO ACUTE RADIOGRAPHIC FINDING IN THE CHEST. Assessment & Plan - Diagnosis (1) Chest pain Qualifiers: Chest pain type: unspecified Qualified Code(s): R07.9 - Chest pain, unspecified Is this a current diagnosis for this admission?: Yes (2) Diabetes Qualifiers: Diabetes mellitus type: type 2 Diabetes mellitus emt intermediate insulin use: unspecified emt intermediate insulin use status Diabetes mellitus complication status : with unspecified complications Qualified Code(s): E11.8 - Type 2 diabetes mellitus with unspecified complications Is this a current diagnosis for this admission?: Yes (3) Hyperlipidemia Qualifiers: Hyperlipidemia type: unspecified Qualified Code(s): E78.5 - Hyperlipidemia , unspecified Is this a current diagnosis for this admission?: Yes (4) Hypertension Qualifiers: Hypertension type: essential hypertension Qualified Code(s): I10 - Essential (primary) hypertension Is this a current diagnosis for this admission?: Yes (5) Peripheral vascular disease Is this a current diagnosis for this admission?: Yes - Time Time Spent with patient: 15-24 minutes Medications reviewed and adjusted accordingly: Yes Anticipated discharge: Home Within: within 24 hours - Inpatient Certification Medical Necessity: Need Close Monitoring Due to Risk of Patient Decompensation Post Hospital Care: D/C Accreditation Manager Documentation - Plan Summary Plan Summary: Plan to the stress test due to multiple risk factor in the chest pain follow with the cardiology
[2018-03-28] MEDS: INSULIN GLARGINE,HUM.REC.ANLOG 300 UNIT/3 ML INSULN.PEN SUBCUT SCH (22:36)
[2018-03-28] MEDS: ATORVASTATIN CALCIUM 80 MG TABLET PO SCH (22:37)
[2018-03-29] MEDS: METFORMIN HCL 500 MG TABLET PO SCH (10:35)
[2018-03-29] MEDS: INSULIN LISPRO 100 UNIT/ML 3 ML VIAL SUBCUT SCH ×2 (10:35→14:02)
[2018-03-29] MEDS: ASPIRIN 81 MG TABLET, ENT COATED PO SCH (11:20)
[2018-03-29] MEDS: LANSOPRAZOLE 30 MG TAB.RAP.DR PO SCH (11:21)
[2018-03-29] MEDS: AMLODIPINE BESYLATE 5 MG TABLET PO SCH (11:22)
--- NOTE | 2018-03-29 13:33 | DRAGON STRESS TEST REPORT ---
INTRAVENOUS LEXISCAN CARDIOLITE STRESS TEST USING SINGLE PHOTON EMMISION COMPUTERIZED TOMOGRAPHIC. DATE OF PROCEDURE: March 29, 2018, INDICATION : Chest pain CARDIAC RISK FACTORS: Diabetes, hypertension, dyslipidemia RESTING EKG: Sinus rhythm without any baseline ST-T wave changes STRESS EKG: No significant ST segment changes noted with LexiScan bolus REASON FOR TERMINATION: Protocol. PROCEDURE REPORT: Baseline heart rate 78 beats per minute with blood pressure of 138/77. Patient had no significant complaints. Patient was bolused with Lexiscan 0.4 mg intravenously followed by saline bolus. Heart rate at 2 minutes post bolus 115 with a blood pressure of 152/74. 3 minutes post bolus heart rate 100 with blood pressure of 151/93. No significant EKG changes were noted. Patient had no significant complaints during the procedure or postprocedure. Patient injected with Aminophyllin 75 mg at 3 minutes or later after Lexiscan bolus. CONCLUSIONS: Normal EKG and hemodynamic response to IV LexiScan. NUCLEAR DATA: At rest the patient was given 12.67 millicuries of technetium 99 sestamibi injected intravenously. As per protocol rest gated SPECT images were obtained. On day of stress test, the patient was given intravenous LexiScan at a dose of 0.4 mg in 5 mL intravenously, followed by flush with normal saline. Subsequently the stress dose of 39.2 millicuries of technetium 99 sestamibi was injected intravenously. As per protocol stress gated images were obtained. NUCLEAR INTERPRETATION: Both raw and processed data were used for interpretation. Visual, qualitative, computer-generated quantitative data was used. There was good myocardial uptake of technetium compound. Motion artifact and soft tissue attenuations were noted. Increased visceral uptake was noted. No definitive areas of transient perfusion defect noted, No definitive areas of fixed perfusion defect or scars noted. EKG gated imaging showed LV EF at 52 %, rest and stress gated EF similar visually. T. I D. ratio was 1.22. Lung heart ratio noted to be within normal limits 0.32. No significant extracardiac and abnormal radiotracer activities were noted. RV free wall uptake was noted to be WNL. IMPRESSION: Also refer to comments under nuclear interpretation. Also test results needs to be interpreted in the context of pretest probability. 1. No definitive areas of transient perfusion defect noted. 2. There is no definitive scintigraphic evidence of myocardial infarction/scar. 3. EKG gated imaging shows left ventricular ejection fraction of approx. 52 %. 4. Clinical correlation requested as occasionally single vessel disease or balanced ischemia could be missed. In approximately 10% of the cases Lexiscan may not cause adequate vasodilatory stress. RECOMMENDATIONS: Aggressive risk factor modification and medical management. Further evaluation may be needed if continued symptoms or other high risk indicators are noted on clinical evaluation. Close cardiology follow-up is also recommended. Clinical correlation with echocardiogram derived ejection fraction. Inability to exercise by itself can lead to increased cardiovascular event risks. Consider cardiology consultation and or follow-up if clinically indicated. I am available for cardiology evaluation and consultation if requested by the behavioral pediatrician, unless patient already has a nursing informatics analyst. DARSHAN
--- NOTE | 2018-03-29 15:07 | PDOC DISCHARGE SUMMARY ---
General - Admit/Disc Date/PCP Admission Date/Primary Care Provider: 03/28/18 13:30 TOYIN VAZQUEZ Discharge Date: 03/29/18 - Discharge Diagnosis (1) Chest pain Is this a current diagnosis for this admission?: Yes Summary: Patient's currently no chest pain and a stress test is negative (2) Diabetes Is this a current diagnosis for this admission?: Yes Summary: stable (3) Hyperlipidemia Is this a current diagnosis for this admission?: Yes Summary: stable (4) Hypertension Is this a current diagnosis for this admission?: Yes Summary: stable (5) Peripheral vascular disease Is this a current diagnosis for this admission?: Yes Summary: stable - Additional Information Resuscitation Status: Full Code Discharge Diet: Diabetic Discharge Activity: Activity As Tolerated Home Medications: Amlodipine Besylate [Norvasc 5 mg Tablet] 5 mg PO Q12H 11/09/12 Aspirin [Ecotrin 81 mg EC Tablet] 81 mg PO DAILY 11/09/12 Telmisartan/Hydrochlorothiazid [Micardis HCT 40-12.5 mg Tablet] 1 each PO DAILY 11/09/12 Metformin HCl [Glucophage 500 mg Tablet] 1,000 mg PO BIDBS #0 tablet 11/14/12 Cetirizine HCl [Zyrtec 10 mg Tablet] 10 mg PO DAILY 03/27/18 Cholecalciferol (Vitamin D3) [Vitamin D3 1000 Unit Tablet] 1,000 unit PO DAILY 03/27/18 Clopidogrel Bisulfate [Plavix 75 mg Tablet] 75 mg PO DAILY 03/27/18 Dulaglutide [Trulicity] 0.75 mg SQ MO@1000 03/27/18 Fluticasone/Salmeterol [Advair 250-50 Diskus 14 Dose/Diskus] 1 inh IH Q12 Pantoprazole Sodium [Protonix] 40 mg PO DAILY 03/27/18 Simvastatin 10 mg PO QHS 03/27/18 Tizanidine HCl [Zanaflex 4 mg Tablet] 4 mg PO Q6HP PRN 03/27/18 History of Present Illness History of Present Illness: KATHYA MIN is a 62 year old female This is a 62-year-old females with a history of the type 2 diabetes history of the hypertension hyperlipidemia and multiple other comorbidity basically came to the emergency department with a complaint with chest pains with the multiple risk factors patient was admitting the hospital to rule out acute coronary syndromes Hospital Course Hospital Course: Is a 62-year-old females admitting in the hospital for the rule out acute coronary syndromes and the chest pain and patient initial workup is all negative and patient underwent for the stress test and echocardiogram was all stable and cardiology was consulted and patient's discharge home with the stable conditions Patients walk in the hallway without any problems and patient's p.o. intake is good Physical Exam Vital Signs: Temp Pulse Resp BP Pulse Ox 97.3 F 86 16 134/84 H 98 03/29/18 12:04 03/29/18 14:00 03/29/18 12:37 03/29/18 12:04 03/29/18 12:37 Intake & Output 03/28/18 03/29/18 03/30/18 06:59 06:59 06:59 Intake Total 1276 Output Total 1800 Balance -524 Weight 83.3 kg General appearance: PRESENT: no acute distress, well-developed, well-nourished Head exam: PRESENT: atraumatic, normocephalic Eye exam: PRESENT: conjunctiva pink, EOMI, PERRLA. ABSENT: scleral icterus Ear exam: PRESENT: normal external ear exam Mouth exam: PRESENT: moist, tongue midline Neck exam: PRESENT: full ROM. ABSENT: carotid bruit, JVD, lymphadenopathy, thyromegaly Respiratory exam: PRESENT: clear to auscultation selvin Cardiovascular exam: PRESENT: RRR. ABSENT: diastolic murmur, rubs, systolic murmur Pulses: PRESENT: normal dorsalis pedis pul, +2 pedal pulses bilateral Vascular exam: PRESENT: normal capillary refill GI/Abdominal exam: PRESENT: normal bowel sounds, soft. ABSENT: distended, guarding, mass, organolmegaly, rebound, tenderness Rectal exam: PRESENT: deferred Extremities exam: ABSENT: pedal edema Musculoskeletal exam: PRESENT: ambulatory Neurological exam: PRESENT: alert, awake, oriented to person, oriented to place , oriented to time, oriented to situation, CN II-XII grossly intact. ABSENT: motor sensory deficit Psychiatric exam: PRESENT: appropriate affect, normal mood. ABSENT: homicidal ideation, suicidal ideation Skin exam: PRESENT: dry, intact, warm. ABSENT: cyanosis, rash Results Impressions: Chest X-Ray 03/26/18 16:51 IMPRESSION: NO ACUTE RADIOGRAPHIC FINDING IN THE CHEST. Qualifiers - * PATIENT BEING DISCHARGED WITH ANY OF THE FOLLOWING DIAGNOSIS: No VTE patient discharged on overlapping Therapy?: Yes Plan Time Spent: Less than 30 Minutes - Patient's discharge home and follow with the outpatients cardiology
[2018-03-29 15:08] VITALS: BP 132/68
[2018-03-29] MEDS ORDERED: REGADENOSON INJ 0.4 MG/5 ML DISP.SYRIN IV ONE (15:24)
[2018-03-29] MEDS ORDERED: AMINOPHYLLINE INJ/PF 250 MG/10 ML SDV IV ONE (15:24)
--- NOTE | 2018-03-29 18:57 | XCELERA REPORT ---
[address] [address] Transthoracic Echocardiogram Report Name: KATHYA MIN Age: 62 yrs Gender: Female : 1955 Patient Status: Inpatient Patient Location: [address] [place] [address] Study Date: 03/29/2018 10:06 AM Height: 67 in Weight: 181 lb BSA: 1.9 m2 Procedure: A complete two-dimensional transthoracic echocardiogram was performed (2D, M-mode, spectral and color flow Doppler). The study was technically adequate with some images being suboptimal in quality. Reason For Study: CP Ordering Physician: TIN BRAUN Performed By: Hope Barbour Interpretation Summary The left ventricle has normal cavity size with globally normal systolic function. Estimated left ventricular ejection fraction is 55%. There is mild to moderate concentric left ventricular hypertrophy. The left ventricle is grossly normal size. Doppler measurements suggest pseudonormalized left ventricular relaxation, which is associated with grade II/IV or mild to moderate diastolic dysfunction Wall motion cannot be accurately commented on, but no definite regional wall motion abnormalities noted. The right ventricular systolic function is normal. The right atrium is normal in size The left atrial size is normal. There is no mitral valve stenosis. There is a trace amount of mitral regurgitation There is no aortic valve stenosis No aortic regurgitation is present. There is a trace or physiologic amount of tricuspid regurgitation Tricuspid regurgitation jet envelope not well defined to measure RV systolic pressure accurately. The aortic root is not well visualized but is probably normal size. The inferior vena cava was not well visualized Minimal to small pericardial effusion. MMode/2D Measurements & Calculations RVDd: 2.9 cm LVIDd: 3.8 cm FS: 27.5 % Ao root diam: 2.9 cm IVSd: 1.4 cm LVIDs: 2.8 cm EDV(Teich): 63.8 ml LVPWd: 1.2 cm ESV(Teich): 29.3 ml Ao root area: 6.8 cm2 EF(Teich): 54.0 % LA dimension: 3.2 cm Doppler Measurements & Calculations MV E max talisha: MV P1/2t max talisha: Ao V2 max: LV V1 max P.0 cm/sec 57.3 cm/sec 137.9 cm/sec 4.1 mmHg MV A max talisha: MV P1/2t: 95.1 msec Ao max PG: LV V1 max: 84.4 cm/sec 7.6 mmHg 101.7 cm/sec MV E/A: 0.66 MVA(P1/2t): 2.3 cm2 MV dec slope: 176.4 cm/sec2 MV dec time: 0.31 sec PA V2 max: TR max talisha: 68.1 cm/sec 221.3 cm/sec PA max PG: TR max P.6 mmHg 1.9 mmHg Left Ventricle The left ventricle is grossly normal size. There is mild to moderate concentric left ventricular hypertrophy. The left ventricle has normal cavity size with globally normal systolic function. Estimated left ventricular ejection fraction is 55%. Doppler measurements suggest pseudonormalized left ventricular relaxation, which is associated with grade II/IV or mild to moderate diastolic dysfunction. Wall motion cannot be accurately commented on, but no definite regional wall motion abnormalities noted. Right Ventricle The right ventricle is normal in size, thickness and function. There is normal right ventricular wall thickness. The right ventricular systolic function is normal. Atria The right atrium is normal in size. The left atrial size is normal. Interarterial septum not well visualized and not well dopplered. Cannot comment on ASD/PFO presence. Mitral Valve The mitral valve is grossly normal. There is no mitral valve stenosis. There is a trace amount of mitral regurgitation. Aortic Valve The aortic valve is grossly normal. There is no aortic valve stenosis. No aortic regurgitation is present. Tricuspid Valve The tricuspid valve is not well visualized, but is grossly normal. There is no tricuspid stenosis. There is a trace or physiologic amount of tricuspid regurgitation. Tricuspid regurgitation jet envelope not well defined to measure RV systolic pressure accurately. Pulmonic Valve The pulmonic valve is not well visualized. Great Vessels The aortic root is not well visualized but is probably normal size. The inferior vena cava was not well visualized. Effusions Minimal pericardial effusion. : TIN BRAUN > Tin Braun
--- NOTE | 2018-03-29 19:29 | PDOC PROGRESS REPORT ---
Subjective Progress Note for:: 03/29/18 Subjective:: Patient seems to be doing better with no complaints. Nuclear stress test procedure, risk benefits were again reviewed with the patient patient was again seen after the stress test was completed.. Pt is denying any chest arm or neck discomfort. Patient denying any PND, orthopnea. Patient denied any sustained palpitations, dizziness, syncope, near syncope. Patient denying any fever chills. Patient denying any other significant discomfort. Patient is maintaining sinus rhythm. Review of systems: Rest review of systems negative. Medications: Medications have been reviewed. Reason For Visit: CHEST PAIN Physical Exam Vital Signs: Temp Pulse Resp BP Pulse Ox 97.3 F 86 16 132/68 H 98 03/29/18 15:06 03/29/18 15:06 03/29/18 15:06 03/29/18 15:06 03/29/18 15:06 Intake & Output 03/28/18 03/29/18 03/30/18 06:59 06:59 06:59 Intake Total 1276 Output Total 1800 Balance -524 Weight 83.3 kg Exam: GENERAL: well-nourished and in no acute distress. Alert and oriented x3 HEAD: Atraumatic, normocephalic. EYES: Pupils equal round and reactive to light, extraocular movements intact, sclera anicteric, conjunctiva are normal. ENT: TMs normal, nares patent, oropharynx clear without exudates. Moist mucous membranes. No oral ulcerations or bleeding gums noted NECK: supple without lymphadenopathy. Trachea is central. No cervical or axillary lymphadenopathy noted. Carotids are 2+, JVD WNL LUNGS: Respiration seems nonlabored, no significant accessory muscle action noted. Breath sounds clear to auscultation bilaterally and equal noted. No wheezes rales or rhonchi noted. No significant dullness noted on percussion. CHEST: Palpation of the chest wall shows no significant chest wall tenderness. 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 ABDOMEN: Soft, no significant tenderness appreciated, normoactive bowel sounds. No guarding, no rebound. No rigidity noted . No masses appreciated. EXTREMITIES: Pedal pulses are 1-2+, no calf tenderness noted. No clubbing or cyanosis. negative pedal edema noted NEUROLOGICAL: Focused neurological exam showed no significant neurologic deficit. Normal speech, no focal weakness appreciated. PSYCH: Normal mood, normal affect. Judgment and insight within normal limits. SKIN: No significant ecchymosis, skin is noted to be warm. MUSCULOSKELETAL EXAM: No significant acute joint swelling noted. Results EKG Comments: Telemetry shows sinus rhythm without any sustained tachycardia or bradycardia. Impressions: Chest X-Ray 03/26/18 16:51 IMPRESSION: NO ACUTE RADIOGRAPHIC FINDING IN THE CHEST. Assessment & Plan - Diagnosis (1) Chest pain Qualifiers: Chest pain type: unspecified Qualified Code(s): R07.9 - Chest pain, unspecified Is this a current diagnosis for this admission?: Yes (2) Hypertension Qualifiers: Hypertension type: essential hypertension Qualified Code(s): I10 - Essential (primary) hypertension Is this a current diagnosis for this admission?: Yes (3) Peripheral vascular disease Is this a current diagnosis for this admission?: Yes (4) Hyperlipidemia Qualifiers: Hyperlipidemia type: unspecified Qualified Code(s): E78.5 - Hyperlipidemia , unspecified Is this a current diagnosis for this admission?: Yes (5) Diabetes Qualifiers: Diabetes mellitus type: type 2 Diabetes mellitus correction insulin use: unspecified correction insulin use status Diabetes mellitus complication status : with unspecified complications Qualified Code(s): E11.8 - Type 2 diabetes mellitus with unspecified complications Is this a current diagnosis for this admission?: Yes - Notes Notes: Chest pain: Patient claims chest pain is resolved without any recurrences. This was evaluated with a nuclear stress test. Nuclear stress test was negative for any significant areas of ischemia or any significant areas of scar. The nuclear stress test is felt to be relatively low risk. Patient informed that occasionally single-vessel disease and balanced ischemia could be missed. Patient advised aggressive risk factor modification and medical therapy. Patient informed that further evaluation may become necessary if symptoms worsens or there is a development of new symptoms indicative of angina or angina equivalent symptom. Blood pressure goal in this patient is 140/90 or less. This was discussed with the patient. Currently blood pressure under reasonable control. Better medication for this patient are MARISOL inhibitor/ARB/beta gilberto etc. discussed side effects of uncontrolled hypertension and also severe hypotension. PVD: No acute limb ischemia noted. Based on previous evaluation, patient has significant PVD. Further evaluation can be performed as an outpatient. Foot care discussed. Rest ischemia symptoms discussed. Patient to report immediately if such symptoms occur. Diabetes: Recommend good control of blood sugar. However should avoid any hypoglycemia and hyperglycemia. Patient being expertly managed by primary care M.D/hospitalist Hyperlipidemia: LDL goal is less than 70. Recommend statin therapy at least intermediate or high dose, of high potency status. Periodic lipid panel and liver panel is indicated. Patient to report any significant muscle discomfort or other side effects. - Time Time with patient: Greater than 35 minutes - Patient was seen multiple times. Total time exceeds 40 minutes. In the morning nuclear stress test procedure, risks benefits, alternatives were discussed. Patient seen during the stress test. Patient also seen after stress test when results were discussed with the patient in detail. Patient's questions were answered. Nuclear stress test results were discussed with the patient. Patient was informed that no definitive evidence of pharmacologic stress-induced ischemia noted. No definite fixed defects were noted. Patient informed that occasionally significant single vessel disease or balanced ischemia could be missed. However based on the current study results, would recommend aggressive risk factor modification and medical therapy. It may also be worthwhile to consider evaluation or empiric management of other causes of chest pain. Should no other cause be found and if persistent in having chest pain, then cardiac catheterization should be considered. Right now, recommendations are for aggressive risk factor modification and medical management. 2D echo results were also reviewed. Patient does have trace to a small pericardial effusion but normal LVEF. CODE STATUS was discussed, patient remains full code. More than 50% of the time spent coordinating care, discussing management plans with involved caregivers. Management plans discussed with involved personnels. Medical decision making was of moderate to high complexity, patient's has multiple comorbidities. Medications reviewed and adjusted accordingly: Yes
--- NOTE | 2018-03-29 22:37 | EKG REPORT ---
SEVERITY:- NORMAL ECG - SINUS RHYTHM : Confirmed by: Tin Hercules 29-Mar-2018 22:36:36
== END 2018-03-29 15:45 | disposition home or self-care (01) | DRG 313 ==
LOC: ER 15:23 → EH 19:00 → OBSVTOIN 19:00 → INTOOBSV 19:00 → 4W 20:59 → OBSVTOIN 03-28 13:30
PROVIDERS: ADMIT Family Medicine; ATTEND Family Medicine
DX: R07.89 Other chest pain (principal); E11.9 Type 2 diabetes mellitus without complications; E78.5 Hyperlipidemia, unspecified; K21.9 Gastro-esophageal reflux disease without esophagitis; I73.9 Peripheral vascular disease, unspecified; M19.90 Unspecified osteoarthritis, unspecified site; Z90.49 Acquired absence of other specified parts of digestive tract; Z98.891 History of uterine scar from previous surgery; Z87.891 Personal history of nicotine dependence; Z98.51 Tubal ligation status; Z79.4 Long term (current) use of insulin; Z79.84 Long term (current) use of oral hypoglycemic drugs; Z91.040 Latex allergy status; Z95.820 Peripheral vascular angioplasty status with implants and grafts
CPT/HCPCS: 36415; 71045; 78452; 80053; 82550; 82553; 82962; 83690; 84484; 85025; 85379; 93005; 93010; 93017; 93306; 99285; A9500; G0378; J0280; J1815; J2785; J3490; Q9969

== ENCOUNTER → 2018-05-18 | Outpatient (CLI) | payer OTHER ==
--- NOTE | 2018-05-18 16:18 | RADIOLOGY REPORT (SQ) ---
EXAM DESCRIPTION: U/S RETROPERITON (RENAL/AORTA) COMPLETED DATE/TIME: 05/18/2018 3:54 pm REASON FOR STUDY: D30.02 BENIGN NEOPLASM OF LEFT KIDNEY D30.02 BENIGN NEOPLASM OF LEFT KIDNEY COMPARISON: Renal ultrasound dated February 2017 TECHNIQUE: Dynamic and static grayscale images acquired of the kidneys and bladder and recorded on P ACS. Additional selected color Doppler and spectral images recorded. LIMITATIONS: None. FINDINGS: RIGHT KIDNEY: 10.1 cm in length. Normal echogenicity. No solid or suspicious masses. Small cyst is identified measuring 1.3 x 1.0 x 1.2 cm. No hydronephrosis. No calcifications. LEFT KIDNEY: 10.6 cm in length. Normal echogenicity. The previously described echogenic lesion i n the upper pole is again identified measuring 2.1 x 1.6 x 1.4 cm in diameters. Again the appearance is consistent with the clinical history of and angiomyolipoma identified on the previous PET-CT scan . Small cyst is identified measuring 0.8 x 1.1 x 0.7 cm in diameters. A complex cyst is identified measuring 1.9 x 1.3 x 1.4 cm in diameters. No hydronephrosis. No calcifications. BLADDER: Bladder was not well evaluated due to its decompressed state. OTHER FINDINGS: No other significant finding. IMPRESSION: Echogenic lesion in the left kidney is again identified consistent with the clinical his tory of an angiomyolipoma. Small bilateral renal cysts as noted above. Other findings as noted josephine bonner TECHNICAL DOCUMENTATION: JOB ID: [id number] [employer]- All Rights Reserved Reading location - IP/workstation name: [email or web address]
== END ==
LOC: RAD 15:13
PROVIDERS: ATTEND Urology
DX: D30.02 Benign neoplasm of left kidney (principal); N28.1 Cyst of kidney, acquired
CPT/HCPCS: 76770

== ENCOUNTER → 2018-07-22 | Outpatient (CLI) | payer OTHER ==
--- NOTE | 2018-07-22 11:55 | WOMENS IMAGING REPORT ---
EXAM DESCRIPTION: 3D SCREENING MAMMO BILAT COMPLETED DATE/TIME: 07/22/2018 11:24 am REASON FOR STUDY: SCREENING MAMMO Z12.31 ENCNTR SCREEN MAMMOGRAM FOR MALIGNANT NEOPLASM OF SARAI COMPARISON: [id number] TECHNIQUE: Standard craniocaudal and mediolateral oblique views of each breast recorded using digita l acquisition and breast tomosynthesis. LIMITATIONS: None. FINDINGS: Findings present which are benign by mammographic criteria. No suspicious masses, calcifi cations or architectural distortion. Pertinent benign findings: Cyst or fibroadenoma left. Read with the assistance of CAD. .[facility] - R2 Cenova Version 1.3 .[facility] - R2 Cenova Version 1.3 .[facility] - R2 Cenova Version 2.4 .[facility] - R2 Cenova Version 2.4 .[facility] - R2 Ceramic Tile Mechanic Version 9.2 Benign mammographic findings may include one or more of the following: Smooth masses, popcorn/rim/co arse calcifications, asymmetries, post-procedure changes, and lesions with long-standing stability. IMPRESSION: BENIGN MAMMOGRAPHIC FINDINGS. BIRADS 2 BREAST DENSITY: a. The breasts are almost entirely fatty. BIRAD: 2 BENIGN FINDING(S) RECOMMENDATION: RECOMMENDATION: ROUTINE SCREENING COMMENT: The patient has been notified of the results by letter per SA requirements. Additional no tification policies are in place for contacting patient with suspicious or incomplete findings. Quality ID #[id number]: The [employer] recommends an annual screening mammogram for women aged 40 years or over. This facility utilizes a reminder system to ensure that all patients receive reminder letters, and/or direct phone calls for appointments. This includes reminders for routine scr eening mammograms, diagnostic mammograms, or other Breast Imaging Interventions when appropriate. Th is patient will be placed in the appropriate reminder system. The [employer] (ACR) has developed recommendations for screening MRI of the breast s in certain patient populations, to be used in conjunction with mammography. Breast MRI surveillanc e may be appropriate for women with more than 20% lifetime risk of developing breast cancer as deter mined by genetic testing, significant family history of the disease, or history of mantle radiation f or Hodgkins Disease. ACR Practice Guidelines 2008. DBT Technology DBT is a type of tomographic mammography. With conventional mammography, overlapping breast tissue ma y make lesions difficult to detect, even with good compression. DBT uses an x-ray tube that rotates a round the breast, taking images at different angles. These images are then combined to create thin sl ices of the breast that the radiologist can view as a 3D reconstruction. The Hologic unit can perform full-field digital mammograms (2D imaging); or DBT (3D imaging); or both, in a combination mode that quickly performs both the mammogram and the tomosynthesis scan while the breast is still compressed. PQRS 6045F: Fluoroscopic imaging is not utilized for breast tomosynthesis. TECHNICAL DOCUMENTATION: FINDING NUMBER: (1) ASSESSMENT: (1) JOB ID: [id number] [employer]- All Rights Reserved Reading location - IP/workstation name: [email or web address]
== END ==
LOC: WI 11:05
PROVIDERS: ATTEND Family Medicine
DX: Z12.31 Encounter for screening mammogram for malignant neoplasm of breast (principal)
CPT/HCPCS: 77063; 77067

== ENCOUNTER → 2018-11-09 | Outpatient (CLI) | payer OTHER ==
[~2018-11-09] MED LIST: ALBUTEROL SULFATE 0.083% NEB 2.5 MG/3 ML AMPUL NEB ONE
--- NOTE | 2018-11-09 16:57 | Pulmonary Function Test ---
Pulmonary Function Test Date of Procedure:: 11/09/18 INDICATION:: Dyspnea Referring Provider: Dr. Chen Director Process Improvement: Dolly Cornelius AIRLINE RADIO OPERATOR - Report Spirometry: FVC 2.01 L 62% postbronchodilator 1.88 L 58% FEV1 1.22 L 47% postbronchodilator 1.13 L 43% FEV1/FVC % 61 postbronchodilator 60 predicted 82 FEF 25-75% 0.51 L 19% postbronchodilator 0.55 L 20% Impression: Moderate obstructive ventilatory defect.No response to bronchodilator therapy. This in and of itself does not preclude a clinical trial of bronchodilator therapy. Restrictive defect is implied but cannot be diagnosed on the basis of spirometry alone; if clinically indicated complete pulmonary function test would be warranted.(Restrictive defect may mask the degree of obstruction.)
== END ==
LOC: RT 07:53
DX: J44.9 Chronic obstructive pulmonary disease, unspecified (principal)
CPT/HCPCS: 94060

== ENCOUNTER → 2019-05-15 | Outpatient (CLI) | payer OTHER ==
--- NOTE | 2019-05-15 13:40 | RADIOLOGY REPORT (SQ) ---
EXAM DESCRIPTION: BARIUM SWALLOW ESOPHAGUS COMPLETED DATE/TIME: 05/15/2019 8:25 am REASON FOR STUDY: DYSPHAGIA (R13.12) R13.12 DYSPHAGIA, OROPHARYNGEAL PHASE COMPARISON: AP chest 03/26/2018 PET-CT 08/25/2015 TECHNIQUE: Under fluoroscopic guidance, patient ingested effervescent granules followed by thick and thin barium. Fluoroscopic spot images and routine radiographic images acquired and stored on PACS. 12 MM BARIUM TABLET GIVEN: Yes. No significant delay in passage. LIMITATIONS: None. FLUOROSCOPY TIME: FLUORO TIME: 2 minutes 30 seconds 6 series of digital images saved to PACS. FINDINGS: NEUROMUSCULAR COORDINATION OF SWALLOW: Normal. No aspiration. ESOPHAGEAL MOTILITY: Normal peristalsis. No esophageal spasm. ESOPHAGEAL MUCOSA: No gross mucosal abnormalities. However, about 10 cm superior to the GE junction, a 5 to 7 cm long segment of mild peptic narrowing is present. This does not impede the 12 mm barium tablet passage during swallowing. GASTRO-ESOPHAGEAL JUNCTION: Small hiatal hernia. Unprovoked gastroesophageal reflux to the mid esoph ezra. No Schatzki's ring or distal esophageal stricture. NON-GI TRACT STRUCTURES: No significant finding. OTHER: No other significant finding. IMPRESSION: Small hiatal hernia with gastroesophageal reflux to the midesophagus 5 to 7 cm long peptic mild narrowing in the distal 3rd of the esophagus. No overlying mucosal irregu larity. The 12 mm barium tablet passed through this area. COMMENT: Quality ID 145: Final reports for procedures using fluoroscopy that document radiation exp osure indices, or exposure time and number of fluorographic images (if radiation exposure indices are not available) TECHNICAL DOCUMENTATION: JOB ID: [id number] [employer]- All Rights Reserved Reading location - IP/workstation name: [email or web address]
== END ==
LOC: RAD 07:31
PROVIDERS: ATTEND Family Medicine
DX: K21.9 Gastro-esophageal reflux disease without esophagitis (principal); K44.9 Diaphragmatic hernia without obstruction or gangrene; R13.12 Dysphagia, oropharyngeal phase
CPT/HCPCS: 74220

== ENCOUNTER 2019-05-21 22:13 | Emergency (ER) | payer OTHER ==
[2019-05-21 23:44] LABS: APPEARANCE,URINE TURBID; BILIRUBIN,URINE NEGATIVE (NEGATIVE); COLOR,URINE AMBER; GLUCOSE, URINE NEGATIVE (NEGATIVE); KETONES,URINE TRACE mg/dL (NEGATIVE); LEUKOCYTE ESTERASE,URINE MODERATE (NEGATIVE); NITRITE,URINE NEGATIVE (NEGATIVE); PROTEIN,URINE 100 mg/dL (NEGATIVE); UROBILINOGEN,URINE NEGATIVE mg/dL (<2.0)
[2019-05-21] MEDS ORDERED: CEFTRIAXONE INJ 1000 MG VIAL IM ONE (23:59)
[2019-05-21] MEDS ORDERED: LIDOCAINE 1% INJ-PF (10 MG/ML) 30 ML SDV INFIL ONE (23:59)
[2019-05-22] MEDS ORDERED: PHENAZOPYRIDINE HCL 100 MG TABLET PO ONE (00:01)
--- NOTE | 2019-05-22 00:05 | ER Document Report ---
ED General - General Chief Complaint: Trouble Voiding Stated Complaint: URINARY ISSUES Time Seen by Provider: 05/21/19 22:36 Primary Care Provider: DARA MENDOZA MD [Primary Care Provider] - Follow up in 3-5 days Notes: Patient is a 63-year-old female presents with complaints of feeling like she has to urinate but only small in the urine comes out. Is also noticed some blood in her urine. No fevers. No vomiting. Some dysuria. She is currently on Plavix and aspirin. She denies passing any clots. No other complaints at this time. She does have some mild pain in the suprapubic region. TRAVEL OUTSIDE OF THE [place] IN LAST 30 DAYS: No - Related Data Allergies/Adverse Reactions: diphenhydramine HCl [From Benadryl] Allergy (Unknown, Verified 11/12/12 23:31) Facial swelling Lactase [From Dairy Ease] Adverse Reaction (Intermediate, Verified 11/09/12 19:35) VOMITING latex Allergy (Mild, Uncoded 11/09/12 21:32) Generalized Itching Past Medical History - Social History Smoking Status: Unknown if Ever Smoked Frequency of alcohol use: None Drug Abuse: None Family History: Reviewed & Not Pertinent - Past Medical History Cardiac Medical History: Reports: Hx Hypercholesterolemia, Hx Hypertension Denies: Hx Atrial Fibrillation, Hx Congestive Heart Failure, Hx Coronary Artery Disease, Hx Heart Attack, Hx Peripheral Vascular Disease, Hx Pulmonary Embolism, Hx Heart Murmur Pulmonary Medical History: Reports: Hx Asthma, Hx Bronchitis Denies: Hx COPD, Hx Pneumonia, Hx Respiratory Failure, Hx Sleep Apnea, Hx Tuberculosis Endocrine Medical History: Reports: Hx Diabetes Mellitus Type 1, Hx Diabetes Mellitus Type 2. Denies: Hx Graves' Disease, Hx Hyperthyroidism, Hx Hypothyroidism Renal/ Medical History: Denies: Hx Peritoneal Dialysis Malignancy Medical History: Denies: Hx Leukemia, Hx Lung Cancer GI Medical History: Reports: Hx Gastroesophageal Reflux Disease. Denies: Hx Crohn's Disease, Hx Hiatal Hernia, Hx Irritable Bowel, Hx Liver Failure, Hx Pancreatitis, Hx Ulcer Musculoskeletal Medical History: Reports Hx Arthritis, Denies Hx Fibromyalgia, Denies Hx Muscular Dystrophy, Reports Hx Muscle Spasm, Denies Hx Systemic Lupus Erythematosus Psychiatric Medical History: Denies: Hx Depression Traumatic Medical History: Denies: Hx Fractures Infectious Medical History: Denies: Hx HIV Past Surgical History: Reports: Hx Section - 1988, Hx Cholecystectomy, Hx Hysterectomy, Hx Tubal Ligation. Denies: Hx Appendectomy, Hx Bowel Surgery, Hx Colostomy, Hx Coronary Artery Bypass Graft, Hx Gastric Bypass Surgery, Hx Herniorrhaphy, Hx Mastectomy, Hx Pacemaker, Hx Tonsillectomy - Immunizations Hx Diphtheria, Pertussis, Tetanus Vaccination: Yes Review of Systems - Review of Systems Notes: My Normal Review Basic REVIEW OF SYSTEMS: CONSTITUTIONAL : Denies fever, chills, or sweats. Denies recent illness. EENT: Denies eye, ear, throat, or mouth pain or symptoms. Denies nasal or sinus congestion. CARDIOVASCULAR: Denies chest pain. RESPIRATORY: Denies cough, cold, or chest congestion. Denies shortness of breath, difficulty breathing, or wheezing. GASTROINTESTINAL: Mild suprapubic abdominal pain. Denies nausea, vomiting, or diarrhea. GENITOURINARY: Dysuria, hematuria: Urinary frequency MUSCULOSKELETAL: Denies neck or back pain or joint pain or swelling. SKIN: Denies rash or skin lesions. HEMATOLOGIC : On Plavix and aspirin NEUROLOGICAL: Denies altered mental status or loss of consciousness. ALL OTHER SYSTEMS REVIEWED AND NEGATIVE. Physical Exam - Vital signs Vitals: Temp Pulse Resp BP Pulse Ox 97.6 F 100 22 H 159/96 H 99 05/21/19 22:24 05/21/19 22:24 05/21/19 22:24 05/21/19 22:24 05/21/19 22:24 - Notes Notes: General Appearance: Well nourished, alert, cooperative, no acute distress, mild obvious discomfort. Vitals: reviewed, See vital signs table. Eyes: PERRL, EOMI, Conjuctiva clear Mouth: No decreasd moisture Lungs: No wheezing, No rales, No rhonci, No accessory muscle use, good air exchange bilaterally. Heart: Normal rate, Regular rythm, No murmur, no rub Abdomen: Normal BS, soft, No rigidity, mild suprapubic abdominal tenderness to palpation, No guarding, no rebound, no abdominal masses, no organomegaly. Bedside ultrasound shows the patient only has 45 mL's of urine in the bladder. Skin: warm, dry, appropriate color, no rash Neuro: speech clear, oriented x 3, normal affect, responds appropriately to questions. Course - Re-evaluation Re-evalutation: 05/22/19 01:14 Appears patient has hemorrhagic cystitis. She does not have actual urinary retention that she only has 45 mL's of urine in her bladder on bedside ultrasound. I feel that the patient safe to be discharged home. I will give her a dose of Rocephin. She is not septic or toxic appearing. Her vital signs are stable. I will place her on Keflex. I encouraged her return to ER if she has inability to urinate, passing of clots, fevers, or if she feels like she is worsening in any way. Patient agrees with plan and will be discharged home. Dictation of this chart was performed using voice recognition software; therefore, there may be some unintended grammatical errors. - Vital Signs Vital signs: Temp Pulse Resp BP Pulse Ox 98.2 F 78 16 168/87 H 99 05/22/19 01:10 05/22/19 01:10 05/22/19 01:10 05/22/19 01:10 05/22/19 01:10 - Laboratory Laboratory results interpreted by me: 05/21/19 22:25 Urine Protein 100 H Urine Ketones TRACE H Urine Blood LARGE H Ur Leukocyte Esterase MODERATE H Discharge - Discharge Clinical Impression: Hemorrhagic cystitis Condition: Good Disposition: HOME, SELF-CARE Additional Instructions: Your urinalysis does show evidence of infection. I have given you a shot of a medication called Rocephin. This is an antibiotic that will help treat your urinary tract infection. I have also prescribed you some antibiotics to take at home. I have prescribed you a medication called Pyridium. This helps with the pain in your bladder and will also turn your urine orange. The change in color of your urine while on this medication is normal. Please have a low threshold to return to the ER if you have fevers, vomiting, or feel that you are worsening in any way. Please return to the ER if you feel that your bladder is becoming very distended and you are unable to pass urine. On rare occasion sometimes blood clots conformity urine which does not allow the urine to pass and therefore you will not be able to urinate at all. If this occurs please return to the ER. Prescriptions: Cephalexin Monohydrate [Keflex 500 mg Capsule] 500 mg PO BID 7 Days #14 capsule Phenazopyridine HCl [Pyridium 100 Mg Tablet] 100 mg PO Q8 #9 tablet Forms: Return to Work Referrals: DARA MENDOZA MD [Primary Care Provider] - Follow up in 3-5 days
[2019-05-22 01:11] VITALS: BP 168/87
== END 2019-05-22 01:14 | disposition home or self-care (01) ==
LOC: ER 22:13
DX: N30.91 Cystitis, unspecified with hematuria (principal); E78.00 Pure hypercholesterolemia, unspecified; I10 Essential (primary) hypertension; Z79.01 Long term (current) use of anticoagulants; Z79.82 Long term (current) use of aspirin; Z91.040 Latex allergy status; Z90.49 Acquired absence of other specified parts of digestive tract; Z90.710 Acquired absence of both cervix and uterus
CPT/HCPCS: 99283; 96372; 81001; J3490 ×2; J0696

== ENCOUNTER → 2019-08-14 | Outpatient (CLI) | payer OTHER ==
--- NOTE | 2019-08-14 14:26 | WOMENS IMAGING REPORT ---
EXAM DESCRIPTION: 3D SCREENING MAMMO BILAT COMPLETED DATE/TIME: 08/14/2019 11:24 am REASON FOR STUDY: Z12.31 SCREENING MAMMO Z12.31 ENCNTR SCREEN MAMMOGRAM FOR MALIGNANT NEOPLASM OF B RE COMPARISON: 07/22/2018 and 07/21/2017. EXAM PARAMETERS: Standard craniocaudal and mediolateral oblique views of each breast recorded using digital acquisition and breast tomosynthesis. Read with the assistance of CAD. .[facility] - [employer] Version 9.2 LIMITATIONS: None. FINDINGS: Findings present which are benign by mammographic criteria. No suspicious masses, calcific ations or architectural distortion. Pertinent benign findings: Stable nodules and calcifications. Benign mammographic findings may include one or more of the following: Smooth masses, popcorn/rim/coa rse calcifications, asymmetries, post-procedure changes, and lesions with long-standing stability. IMPRESSION: BENIGN MAMMOGRAPHIC FINDINGS. BIRADS 2 BREAST DENSITY: a. The breasts are almost entirely fatty. BIRAD: ASSESSMENT: 2 BENIGN FINDING(S) RECOMMENDATION: ROUTINE SCREENING COMMENT: The patient has been notified of the results by letter per SA requirements. Additional no tification policies are in place for contacting patient with suspicious or incomplete findings. Quality ID #225: The [employer] recommends an annual screening mammogram for women aged 40 years or over. This facility utilizes a reminder system to ensure that all patients receive reminder letters, and/or direct phone calls for appointments. This includes reminders for routine scr eening mammograms, diagnostic mammograms, or other Breast Imaging Interventions when appropriate. Th is patient will be placed in the appropriate reminder system. TECHNICAL DOCUMENTATION: FINDING NUMBER: (1) ASSESSMENT: (1) JOB ID: [id number] [employer]- All Rights Reserved Reading location - IP/workstation name: [email or web address]
== END ==
LOC: WI 11:00
PROVIDERS: ATTEND Obstetrics & Gynecology Gynecology
DX: Z12.31 Encounter for screening mammogram for malignant neoplasm of breast (principal)
CPT/HCPCS: 77063; 77067

== ENCOUNTER → 2020-08-15 | Outpatient (CLI) | payer OTHER ==
--- NOTE | 2020-08-15 13:20 | WOMENS IMAGING REPORT ---
EXAM DESCRIPTION: BILAT SCREENING MAMMO W/CAD IMAGES COMPLETED DATE/TIME: 08/15/2020 12:18 pm REASON FOR STUDY: BILATERAL MAMMOGRAM Z12.31 Z12.31 ENCNTR SCREEN MAMMOGRAM FOR MALIGNANT NEOPLASM OF SARAI COMPARISON: Priors dating back to 2011. EXAM PARAMETERS: Standard craniocaudal and mediolateral oblique views of each breast recorded using digital acquisition. Read with the assistance of CAD. .[facility] - [employer] Recordings Librarian Version 9.2 LIMITATIONS: None. FINDINGS: No suspicious masses, suspicious calcifications or architectural distortion. No areas of c oncern. IMPRESSION: NEGATIVE MAMMOGRAM. BIRADS 1 BREAST DENSITY: b. There are scattered areas of fibroglandular density. BIRAD: ASSESSMENT: 1 NEGATIVE RECOMMENDATION: ROUTINE SCREENING COMMENT: The patient has been notified of the results by letter per MQSA requirements. Additional no tification policies are in place for contacting patient with suspicious or incomplete findings. Quality ID #225: The [employer] recommends an annual screening mammogram for women aged 40 years or over. This facility utilizes a reminder system to ensure that all patients receive reminder letters, and/or direct phone calls for appointments. This includes reminders for routine scr eening mammograms, diagnostic mammograms, or other Breast Imaging Interventions when appropriate. Th is patient will be placed in the appropriate reminder system. TECHNICAL DOCUMENTATION: FINDING NUMBER: (1) ASSESSMENT: (1) JOB ID: [id number] 2010 [employer]- All Rights Reserved Reading location - IP/workstation name: [email or web address]
== END ==
LOC: WI 11:55
PROVIDERS: ATTEND Physician Assistant
DX: Z12.31 Encounter for screening mammogram for malignant neoplasm of breast (principal)
CPT/HCPCS: 77067

== ENCOUNTER → 2020-12-23 | Outpatient (CLI) | payer MEDICARE, OTHER ==
--- NOTE | 2020-12-23 11:55 | RADIOLOGY REPORT (SQ) ---
EXAM DESCRIPTION: U/S ABDOMEN COMPLETE W/DOPPLER IMAGES COMPLETED DATE/TIME: 12/23/2020 9:40 am REASON FOR STUDY: EPIGASTRIC ABDOMINAL PAIN R10.13 EPIGASTRIC PAIN COMPARISON: Ultrasound of the abdomen from 05/15/2015. TECHNIQUE: Dynamic and static grayscale images acquired of the abdomen and recorded on PACS. Additio nal selected color Doppler and spectral images recorded. Note: Study does not meet criteria for complete doppler/duplex scan LIMITATIONS: None. FINDINGS: PANCREAS: The visualized portions of the pancreas appear normal. LIVER: The echogenicity of the hepatic parenchyma relative to the renal parenchyma is increased. The re is re- demonstration of a hypoechoic lesion in the anterior left lobe of the liver that measures 1 .1 x 1.4 x 0.9 cm. LIVER VASCULATURE: Normal hepatopetal directional flow in the main portal vein. The hepatic veins ar e patent. GALLBLADDER: Surgically absent. ULTRASOUND-DETECTED MORTENSEN'S SIGN: Negative. INTRAHEPATIC DUCTS AND COMMON DUCT: The common bile duct measures 8 mm in diameter. There is no dila tation of the intrahepatic ducts. INFERIOR VENA CAVA: Patent. AORTA: No aneurysm. RIGHT KIDNEY: The right kidney measures 10.3 cm in length. There is no hydronephrosis. LEFT KIDNEY : The left kidney measures 10 cm in length. There is re- demonstration of a hyperechoic lesion in t he lower pole of the kidney that measures 1.5 x 1.7 x 1.5 cm. There are cysts in the upper and lower poles of the kidney that measure 1.9 x 1.3 x 1.5 cm and 1 x 1 x 0.8 cm respectively. SPLEEN: The spleen measures 8.9 cm in length. PERITONEAL AND PLEURAL SPACES: No ascites or effusions. OTHER: No other finding. IMPRESSION: 1. Hepatic steatosis. 2. Hypoechoic lesion in the left hepatic lobe that measures 1.1 x 1.4 x 0.9 cm ; the lesion measured 1.8 x 1.3 x 1.5 cm on the ultrasound from 05/15/2015. 3. 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 TECHNICAL DOCUMENTATION: JOB ID: [id number] [employer] All Rights Reserved Reading location - IP/workstation name: [email or web address]
== END ==
LOC: RAD 08:04
PROVIDERS: ATTEND Family Medicine
DX: K76.0 Fatty (change of) liver, not elsewhere classified (principal); N28.9 Disorder of kidney and ureter, unspecified; N28.1 Cyst of kidney, acquired; R10.13 Epigastric pain
CPT/HCPCS: 76700; 93976